=== PATIENT | male | born 1965 | race Caucasian/White ===

== ENCOUNTER 2017-01-15 19:39 | Emergency (ER) | payer MEDICARE, OTHER ==
[~2017-01-15] VITALS: Ht 177.8 cm; Wt 115.0 kg
[2017-01-15 19:47] VITALS: Ht 177.8 cm; Wt 115.0 kg
[2017-01-15] MEDS ORDERED: LORA-186 PO (20:05)
[2017-01-15] MEDS ORDERED: SODI30SP2 NS (20:05)
[2017-01-15] MEDS ORDERED: IBUP-1542 PO (20:05)
[2017-01-15] MEDS ORDERED: AMOX1TAB9 PO (20:05)
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
== END 2017-01-15 20:17 | disposition home or self-care (01) ==
LOC: FTE 19:39
DX: J32.9 Chronic sinusitis, unspecified (principal); I10 Essential (primary) hypertension; E11.9 Type 2 diabetes mellitus without complications; F17.210 Nicotine dependence, cigarettes, uncomplicated
CPT/HCPCS: 99283

== ENCOUNTER 2017-07-06 07:28 | Day surgery (SDC) | END 2017-07-06 14:50 | disposition home or self-care (01) ==

== ENCOUNTER 2017-07-08 12:22 | Emergency (ER) | END 2017-07-08 20:30 | disposition home or self-care (01) ==